=== PATIENT | female | born 1945 | race Caucasian/White ===

== ENCOUNTER 2020-07-19 22:58 | Emergency (ER) | payer MEDICARE ==
[~2020-07-19] VITALS: Ht 167.6 cm; Wt 108.9 kg
[~2020-07-19 22:58] MED LIST: ALDACTONE25 MG PO; ASPIRIN EC81 M1 PO; BECONASE AQ25 GM; GLUCOPHAGE XR500 MG PO; HYDROXYCHLOROQ200 M1 PO; PRAVACHOL40 MG PO
[2020-07-20 03:12] LABS: BASOPHILS 0.2 % (0.0-2.0); HEMATOCRIT 40.4 % (37.0-47.0); HEMOGLOBIN 13.4 gm/dL (12.0-15.0); LYMPHOCYTES 20.1 % (24.0-44.0); MCH 30.1 pg (26.0-34.0); MCHC 33.1 g/dL (28.0-37.0); MCV 90.9 fL (80.0-100.0); MONOCYTES 8.4 % (1.0-8.0); PLATELET COUNT 180 thou/uL (150-400); POLYS 71.3 % (36.0-66.0); RBC 4.44 mil/uL (4.20-5.00); RDW 15.4 % (10.5-14.5)
[2020-07-20 03:19] LABS: CALCIUM 9.4 mg/dL (8.5-10.1); CREATININE 0.8 mg/dL (0.6-1.0); POTASSIUM 3.8 mmol/L (3.5-5.1)
[2020-07-20 03:25] LABS: ALBUMIN 3.3 g/dL (3.4-5.0); TOTAL BILIRUBIN 0.4 mg/dL (0.2-1.0); TOTAL PROTEIN 7.1 g/dL (6.4-8.2)
[2020-07-20 03:34] LABS: APTT 26.8 Seconds (24.5-32.8); INR 1.01
[2020-07-20 04:07] VITALS: BP 161/98
== END 2020-07-20 04:10 | disposition short-term general hospital (02) ==
LOC: ER 22:58
PROVIDERS: Emergency Medicine
DX: S12.190A Other displaced fracture of second cervical vertebra, initial encounter for closed fracture (principal); S00.81XA Abrasion of other part of head, initial encounter; E78.5 Hyperlipidemia, unspecified; E11.9 Type 2 diabetes mellitus without complications; Z88.2 Allergy status to sulfonamides; Z88.8 Allergy status to other drugs, medicaments and biological substances; Z79.82 Long term (current) use of aspirin; Z88.4 Allergy status to anesthetic agent; W18.30XA Fall on same level, unspecified, initial encounter; Y93.89 Activity, other specified; Y92.89 Other specified places as the place of occurrence of the external cause; Y99.9 Unspecified external cause status

== ENCOUNTER 2020-12-11 20:08 | Inpatient (IN) | payer MEDICARE ==
[~2020-12-11] VITALS: Ht 160 cm; Wt 98.0 kg
--- NOTE | ~2020-12-11 | EMS ---
[address] [address] EMS Patient Care Report Name: ELIECER CASTILLO Room #: 436-P [facility] IN M.R.#: [id number] Admission: 12/11/20 Attend Phys: Rob Charlton Discharge: 12/15/20 Date of : 41 Report #: [id number] THIS REPORT FOR: //name// Report Transmitted: 12/19/2020 10:13 EMS Care Summary [place], [place]/[facility] Incident [id number] @ 12/11/2020 19:29 Incident Location [address] [id number] Patient ELIECER CASTILLO Female, 75 Years 1945 Patient Address [address] [place] [address] Patient History Arthritis, Patient Allergies Penicillin allergy,Sulfa,Celebrex, Patient Medications Unknown, Chief Complaint Left arm pain Disposition Transported No Lights/[place] Dispatch Reason Chest Pain (Non-Traumatic) Transported To [facility] Narrative Pt stated she has had little shots of electricity going thru her body for over a week and tonight it has gotten much worse to the point were she called 911 to transport her to the ER. Pt stated she has not had this issue before and is unsure what is going on. Pt is with no other [place] [address] EMS Patient Care Report Name: ELIECER CASTILLO Room #: 436-P [facility] IN M.R.#: [id number] Admission: 12/11/20 Attend Phys: Rob Charlton Discharge: 12/15/20 Date of : 41 Report #: [id number] transport. Pt found sitting in chair at home with [employer] crew and Pt , Pt is with no signs of distress noted. Pt is C/O a feeling of electricity going up and down her left arm and stated it is not like a pain more like electricity. Pt denied any falls and is with no other complaints noted to EMS during transport to ER. Pt received by RN in ER. Initial Vitals @19:45P: 78,R: 16,BP: 122/74,Pain: 0/10,GCS: 15,Revised Trauma: 12, @20:05P: 76,R: 16,BP: 124/72,Pain: 0/10,GCS: 15,Revised Trauma: 12, Assessments @19:41MENTAL:Person Oriented,Event Oriented,Time Oriented,Place Oriented,SKIN:HEENT:Head/Face: No Abnormalities,Neck/Airway: No Abnormalities,LUNG SOUNDS:General: No Abnormalities,ABDOMEN:General: No Abnormalities,PELVIS//GI:No Abnormalities,EXTREMITIES:Capillary Refill: Left Upper: < 2 Sec,Left Arm: No Abnormalities,Right Arm: No Abnormalities,Left Leg: No Abnormalities,Right Leg: No Abnormalities,PULSE:Radial: 2+ Normal,NEURO:No Abnormalities,@20:05MENTAL:Place Oriented,Person Oriented,Time Oriented,Event Oriented,SKIN:HEENT:Head/Face: No Abnormalities,Neck/Airway: No Abnormalities,LUNG SOUNDS:General: No Abnormalities,ABDOMEN:General: No Abnormalities,PELVIS//GI:No Abnormalities,EXTREMITIES:Capillary Refill: Left Upper: < 2 Sec,Left Arm: No Abnormalities,Right Arm: No Abnormalities,Left Leg: No Abnormalities,Right Leg: No Abnormalities,PULSE:Radial: 2+ Normal,NEURO:No Abnormalities, Impression Pain (Non-Traumatic) Procedures @19:41 ALS Assessment Response: UnchangedSucceeded Timeline 19:28,Call Received 19:28,Dispatch Notified 19:29,Dispatched 19:30,En Route 19:40,On Scene 19:41,At Patient 19:41,ALS Assessment,Response: UnchangedSucceeded, 19:45,BP: 122/74 M,PULSE: 78,RR: 16 R,SPO2: Ox,ETCO2: ,BG: ,PAIN: 0,GCS: 15, 19:53,Depart Scene 20:05,BP: 124/72 M,PULSE: 76,RR: 16 R,SPO2: Ox,ETCO2: ,BG: ,PAIN: 0,GCS: 15, 20:06,At Destination [facility] [address] [place] [address] EMS Patient Care Report Name: ELIECER CASTILLO MARIA Room #: 436-P [facility] IN M.R.#: [id number] Admission: 12/11/20 Attend Phys: Rob Charlton Discharge: 12/15/20 Date of : 41 Report #: [id number] 20:15,Call Closed Disclaimer v1.1 Copyright 2020 [email or web address] This EMS Care Summary contains data elements from the applicable legal record (which may be displayed differently). It is designed to provide pertinent information for the following purposes: continuity of care, clinical quality, and state data reporting. The complete legal record is available to ED staff and administrators of the receiving hospital in [employer]'s Patient Tracker. All data is provided "as is."
[~2020-12-11 20:08] MED LIST changes: -GLUCOPHAGE XR500 MG PO; +METFORMIN HCL500 M1 PO
[2020-12-11 20:13] VITALS: BP 135/58; BP 176/125
[2020-12-11 21:42] LABS: ABSOLUTE NEUTROPHILS 5.4 thou/uL (1.4-8.2); BASOPHILS 0.1 % (0.0-2.0); HEMATOCRIT 42.4 % (37.0-47.0); HEMOGLOBIN 13.8 gm/dL (12.0-15.0); LYMPHOCYTES 25.4 % (24.0-44.0); MCH 30.3 pg (26.0-34.0); MCHC 32.5 g/dL (28.0-37.0); MCV 93.2 fL (80.0-100.0); MONOCYTES 7.7 % (1.0-8.0); PLATELET COUNT 192 thou/uL (150-400); POLYS 66.8 % (36.0-66.0); RBC 4.54 mil/uL (4.20-5.00); RDW 14.4 % (10.5-14.5); WBC 8.1 thou/uL (4.0-11.0)
[2020-12-11 21:46] LABS: CALCIUM 9.3 mg/dL (8.5-10.1); CREATININE 0.8 mg/dL (0.6-1.0); POTASSIUM 4.8 mmol/L (3.5-5.1)
[2020-12-11 21:56] LABS: ALBUMIN 3.5 g/dL (3.4-5.0); TOTAL BILIRUBIN 0.3 mg/dL (0.2-1.0); TOTAL PROTEIN 7.5 g/dL (6.4-8.2)
[2020-12-11] MEDS ORDERED: PRAVASTATIN SOD40 MG PO (22:20)
[2020-12-11] MEDS ORDERED: SPIRONOLACTONE25 MG PO (22:20)
[2020-12-11 22:50] VITALS: BP 144/57
[2020-12-11 23:18] VITALS: BP 159/63
[2020-12-11 23:40] VITALS: BP 165/76
[2020-12-12 03:59] LABS: CALCIUM 9.1 mg/dL (8.5-10.1); CREATININE 0.7 mg/dL (0.6-1.0)
[2020-12-12 04:32] LABS: HEMATOCRIT 38.5 % (37.0-47.0); HEMOGLOBIN 12.7 gm/dL (12.0-15.0); MCH 30.8 pg (26.0-34.0); MCHC 33.1 g/dL (28.0-37.0); MCV 93.2 fL (80.0-100.0); RBC 4.13 mil/uL (4.20-5.00); RDW 13.9 % (10.5-14.5)
--- NOTE | 2020-12-12 05:10 | NUR ---
PT ADMITTED INTO ROOM 436 AT AROUND 2330 HRS. PT IS ALERT AND ORIENTED X 4. COMPLAINS OF SOME WEAKNESS TO LEFT ARM WHICH SHE STATES FEELS ALOT BETTER. NO NUMBNESS OR TINGLING UPON ADMISSION TO THE UNIT. C-COLLAR IN PLACE. SHE DENIES PAIN. SOME PEDAL EDEMA NOTED. SHE REPORTS SEVERAL FALLS RECENTLY AT HOME AND HITTING HEAD.CT OF HEAD NOTED TO HAVE BEEN DONE IN ER.PT IS NPO. FALL PREC IN PLACE.CALL LIGHT WITHIN REACH. WILL CONTINUE WITH POC TILL EOS.
--- NOTE | 2020-12-12 07:09 | EKG ---
[address] [email or web address] [address] ELECTROCARDIOGRAM REPORT Name: ELIECER CASTILLO Room #: 436-P ADM IN M.R.#: [id number] Admission: 12/11/20 Attend Phys: Rob Charlton Discharge: Date of : 41 Report #: [id number] [facility] ED Test Date: 2020-12-11 Test Time: 21:50:17 Pat Name: ELIECER CASTILLO Department: Room: 436 Gender: F [employer] Trimmer: dawson : 1945 Requested By: Simone Briggs Order Number: [id number] MD: Dario Pickering Measurements Intervals [place] Rate: 78 P: -18 MI: 230 QRS: 14 QRSD: 87 T: 33 QT: 344 QTc: 392 Interpretive Statements Sinus rhythm Prolonged MI interval Compared to ECG 11/10/2012 11:19:42 First degree AV block now present Electronically Signed On 12-12-2020 7:09:34 CDT by Dario Pickering [email or web address] <ELECTRONICALLY SIGNED> By: Dario Pickernig MD, [facility] 12/12/20 0709 49 Dario Pickering MD, FACC /EPI
[2020-12-12 07:23] VITALS: BP 138/61
--- NOTE | 2020-12-12 09:25 | NUR ---
Unable to visit with otilia r/paul going for the MRI.
--- NOTE | 2020-12-12 10:20 | NUR ---
Nutrition: pt risk for pressure wound on admission assessment, but none noted in charting and no Gene risk. RN today was not aware of any pressure wound; Defer assessement.
--- NOTE | 2020-12-12 11:38 | NUR ---
A/O X 3. ROOM AIR. RIGHT WRIST PIV SALINE LOCKED. STAND BY ASSIST WITH WALKER. UPON ASSESSMENT PATIENT DID NOT HAVE ON C COLLAR, SHE WAS EDUCATED ON THE IMPORTANCE AND PUT IT ON BUT WANTS IT ON LOOSE AND WAS EDUCATED ON WHY IT NEEDS TO BE TIGHT AND SHE STILL WANTED IT LOOSE. PT AND 02 HAVE WORKED WITH HER. NO PAIN NOTED. HAVING TINGLING DOWN HER BACK AND BILATERAL LEGS. SHES ABLE TO EAT A CARB CONTROL DIET.
[2020-12-12 16:30] VITALS: BP 129/58
[2020-12-12 20:38] VITALS: BP 139/79
--- NOTE | 2020-12-13 02:01 | NUR ---
UPON SHIFT REPORT, PT WITHOUT NECK BRACE, EXPRESSING DISCOMFORT WITH COMPLIANCE IN MAINTAINING NECK BRACE. PROVIDED EDUCATION AND DISCUSSION IN REGARDS TO RISKS AND BENEFITS TO COMPLYING WITH NECK BRACE ORDER, PT CONTINUES TO REFUSE TO COMPLY. PT REPORTS SHE WILL INTERMITTENTLY APPLY BRACE. UPON SHIFT ASSESSMENT, PT AOX4. PT DENIES PAIN AND SOB WHILE ON ROOM AIR. PT MAINTAINING NECK BRACE AT TIME OF ASSESSMENT. PT HAS PRN PO APAP Q6HR AVAILABLE. PT TOLERATING PO INTAKE OF FLUIDS AND CARB CONTROLLED DIET WITHOUT ISSUE. PT WITHOUT NAUSEA OR EMESIS. PT AMBULATING WITH WALKER AND STANDBY ASSIST TO BATHROOM, GAIT STEADY. SENSATION INTACT, CAPILLARY REFILL LESS THAN 3SEC, PERIPHERAL PULSES PALPABLE IN ALL EXTREMITIES. PT ENCOURAGED TO NOTIFY STAFF FOR ALL NEEDS, CALL LIGHT WITHIN REACH, BED ALARM ON, BED LOCKED IN LOWEST POSITION, ROOM REMAINS NEAR NURSES STATION, FREQUENT MONITORING WILL CONTINUE.
[2020-12-13 04:06] LABS: GLYCOHEMOGLOBIN (HGB A1C) 5.7 % (4.8-5.6)
[2020-12-13 07:19] VITALS: BP 94/67
--- NOTE | 2020-12-13 13:31 | NUR ---
ASSUMED PT CARE THIS AM. PT IS ALERT & ORIENTED X4 BUT DEMANDING AT TIMES. PT HAS IV SITE ON R WRIST SALINE LOCKED. PT IS UP WITH ASSIST X1 WITH WALKER TO BATHROOM. PT IS ACCUCHECK ACHS. PT TOLERATED DIET AND MEDICATION WELL. PT IS ON ROOM AIR. PT IS CURRENTLY SITTING ON THE CHAIR WITH ALARM ON AND CALL LIGHT WITHIN REACH. WILL CONTINUE TO MONITOR PT. FOLLOW POC.
[2020-12-13 15:33] VITALS: BP 132/61
[2020-12-13 20:39] VITALS: BP 91/49
--- NOTE | 2020-12-14 01:36 | NUR ---
ASSUMED CARE OF PT AT 1900. BEDSIDE REPORT RECIEVED. AMA ASSESSMENT COMPLETE. BP RUNNING MILDLY LOW IN 90'S C ESCALATED HR IN 130S-140. PT IS EXTREMELY WORKED UP DEMANDING TO GO HOME AND YELLING AND TALKING TO [place]. IS BEING UNREDIRECTABLE, REFUSING TO SIT OR LAY, AND REFUSING ALL NURSING CARE INCLUDING 2100 ACCUCHECK AND RECHECK VITALS. NOTIFIED [employer] INTERNAL CONTROL CONSULTANT, IV HALDOL ORDERED AND GIVEN BY DASHAWN JOSEPH. PT IN BED, SLEEPING AFTER IV HALDOL, CALM. R WRIST PIV CDI, PATENT. CONTINUING HOURLY ROUNDING, ALL NEEDS MET. CALL LIGHT IN REACH
[2020-12-14 02:30] VITALS: BP 142/50
[2020-12-14 07:39] VITALS: BP 112/46
--- NOTE | 2020-12-14 12:53 | NUR ---
ASSUMED PT CARE THIS AM. PT IS EXHIBITING LABILE AND EXTREME MOODS SUCH CRYING AND LAUGHING. INFORMED HOSPITALIST THAT NIGHT NURSE GAVE HALDOL LAST NIGHT. PT IS ACCUCHECK ACHS. PT IS NONCOMPLIANT WITH NECK BRACE. PT IS ON ROOM AIR. PT IS VERY DEMANDING. PT IS STAND BY TO THE BATHROOM. PT IS CURRENTLY SITTING ON THE CHAIR EATING AND WATCHING TV. WILL CONTINUE TO MONITOR PT. FOLLOW POC.
[2020-12-14 16:24] VITALS: BP 128/61
[2020-12-14 20:15] VITALS: BP 124/62
[2020-12-14] MEDS ORDERED: VITAMIN C1000 MG PO (23:21)
[2020-12-14] MEDS ORDERED: CENTRAVITES PO (23:21)
[2020-12-14] MEDS ORDERED: FISH OIL 1,001000 M2 PO (23:22)
[2020-12-14] MEDS ORDERED: VITAMIN D310 MC2 PO (23:22)
[2020-12-14] MEDS ORDERED: VITAMIN B122500 MCG PO (23:23)
--- NOTE | 2020-12-15 03:23 | NUR ---
UPON SHIFT ASSESSMENT, PT AOX4, RESPONDING TO ORIENTATION PROMPTS APPROPRIATELY. C-COLLAR/NECK BRACE NOT IN PLACE, PT REFUSING APPLICATION, CONTINUED REINFORCEMENT OF EDUCATION REGARDING RISKS AND BENEFITS. PT DENIES PAIN AND SOB WHILE ON ROOM AIR. PT TOLERATING PO INTAKE OF FLUIDS AND CARB CONTROLLED DIET WITHOUT ISSUE. PT WITHOUT NAUSEA OR EMESIS. PT AMBULATING INDEPENDENTLY IN ROOM AND TO BATHROOM WITH WALKER AND STANDBY ASSIST. PT RESTING IN BED OTHERWISE, FREQUENT REPOSITIONING ENCOURAGED, PT NOTED TO SHIFT INDEPENDENTLY. PT REPORTS NUMBNESS AND TINGLING IN BOTH HANDS. CAPILLARY REFILL LESS THAN 3SEC, PERIPHERAL PULSES PALPABLE IN ALL EXTREMITIES. PT ENCOURAGED TO NOTIFY STAFF FOR ALL NEEDS, CALL LIGHT WITHIN REACH, BED LOCKED IN LOWEST POSITION, ROOM REMAINS NEAR NURSES STATION, FREQUENT MONITORING WILL CONTINUE.
[2020-12-15 08:48] VITALS: BP 134/54
--- NOTE | 2020-12-15 13:44 | NUR ---
75 year old female in plan for SNF and [employer] trying to obtain auth at this time. Patient still wavering on going to SNF will have MD speak with patient. Patient prefers Home with Home Health. Will ask for therapy to clarify goals in today s assessment and per LOS meeting with attending plan is home with home health. Patient is seen by PCP Dr. Avel Bhat at [phone]. Per [facility] sn[facility] auth was denied. Discussed during los with the hospitalist, not going to appeal. Discussed with Shazia Martinez about skilled denial and home health options, list of choice given. Do not want who i had last time, must ask julio who it was with, [facility]. Je spoke with Julio via phone call, he stated ok not much can do about that insurance, she going to come home and do what she wants, she had falls at home before. Education about SKILLED NURSING and LTC. Sure, but she won't go. I am 88+ years old and still love her but have some question for the Dr please per Julio-spouse. CM passed on information to Hospitalist to reach out to Julio. Referral sent to [facility] and they can accept for home health for pt, ot, nursing and sw.
[2020-12-15] MEDS ORDERED: GABAPENTIN 100100 MG PO ×2 (13:46→13:49)
[2020-12-15 13:53] VITALS: BP 134/54
--- NOTE | 2020-12-15 15:53 | NUR ---
Assumed pt care this am vs stable. Pt is stable and able to walk with minimal asistance. Encouraged to use he c-collar. POC followed with no signs or verbalizations of distress noted. Educated on the recomendation to follow up with neuro and the c-collar, stated she does not believe in going back sine it is too far. IV removed, pt is now dc picked up by the .
[2020-12-16] MEDS ORDERED: METFORMIN HCL500 M1 PO (16:09)
== END 2020-12-15 15:57 | disposition home health service (06) | DRG 552 ==
LOC: ER 20:08 → 4S 22:48 → EROBS 22:48 → 4S 23:20
PROVIDERS: Emergency Medicine; Nurse Practitioner Family; ADMIT Hospitalist; ATTEND Hospitalist
DX: M54.2 Cervicalgia (principal); M84.48XA Pathological fracture, other site, initial encounter for fracture; E11.9 Type 2 diabetes mellitus without complications; I50.9 Heart failure, unspecified; E66.01 Morbid (severe) obesity due to excess calories; Z20.822 Contact with and (suspected) exposure to COVID-19; E78.5 Hyperlipidemia, unspecified; K21.9 Gastro-esophageal reflux disease without esophagitis; M19.90 Unspecified osteoarthritis, unspecified site; M06.9 Rheumatoid arthritis, unspecified; Z96.653 Presence of artificial knee joint, bilateral; I11.0 Hypertensive heart disease with heart failure; M79.7 Fibromyalgia; R53.81 Other malaise; Z88.2 Allergy status to sulfonamides; Z88.8 Allergy status to other drugs, medicaments and biological substances; Z87.891 Personal history of nicotine dependence
CPT/HCPCS: 10102